=== PATIENT | male | born 2000 | race Caucasian/White ===

== ENCOUNTER 2018-03-22 23:15 | Emergency (ER) | payer OTHER ==
[~2018-03-22] VITALS: Ht 185.4 cm; Wt 80.6 kg
[2018-03-22 23:18] VITALS: TEMP 36.6; Ht 185.4 cm; Wt 80.6 kg
[2018-03-22] MEDS ORDERED: ONDANSETRON INJ 2 MG/ML 2 ML VIAL IV STA (23:31)
[2018-03-22] MEDS ORDERED: SODIUM CHLORIDE 0.9% 1000ML 1,000 ML IV STA (23:31)
[2018-03-22] MEDS ORDERED: HYOSCYAMINE SULFATE 0.125 MG SL TAB SL STA (23:31)
[2018-03-22 23:43] LABS: BASO % 0.3 %; BASO ABS # 0.02 K/uL (0-0.2); HEMOGLOBIN 16.3 g/dL (14.0-18.0); IG# 0.01 K/uL (0.00-0.02); LYMPH % 25.5 %; LYMPH ABS # 1.68 K/uL (1.2-3.4); MEAN CELL VOLUME 92.7 fL (80-100); MEAN CORPUSCULAR HEMOGLOBIN 32.9 pg (25-34); MEAN CORPUSCULAR HGB CONC 35.4 g/dl (32-36); MEAN PLATELET VOLUME 9.4 fL (7.4-10.4); MONO % 12.9 %; MONO ABS # 0.85 K/uL (0.11-0.59); NEUT % 61.1 %; NEUT ABS # 4.03 K/uL (1.4-6.5); PLATELET COUNT 317 K/uL (130-400); RED CELL DISTRIBUTION WIDTH CV 13.5 % (11.5-14.5); RED CELL DISTRIBUTION WIDTH SD 45.7 fL (36.4-46.3); WHITE BLOOD COUNT 6.59 K/uL (4.8-10.8)
[2018-03-22 23:56] LABS: ALBUMIN 4.9 gm/dl (3.4-5.0); CALCIUM 9.6 mg/dl (8.5-10.1); CREATININE 1.31 mg/dl (0.60-1.40); POTASSIUM 3.4 mmol/L (3.5-5.1)
[2018-03-22 23:59] LABS: TOTAL PROTEIN 8.7 gm/dl (6.4-8.2)
[2018-03-23] MEDS ORDERED: LIDOCAINE HCL 2% VISC SOLN 20 ML UDC PO STA (00:15)
[2018-03-23] MEDS ORDERED: ALUMINUM/MAGNESIUM SUSP 30 ML UDC PO STA (00:15)
[2018-03-23] MEDS ORDERED: PANTOprazole SOD 40 MG TAB PO STA (00:29)
[2018-03-23] MEDS ORDERED: ONDANSETRON HOME PACK 4MG OD TAB PO ONE (01:00)
[2018-03-23] MEDS ORDERED: ONDA4TAB10 SL (01:03)
[2018-03-23] MEDS ORDERED: PRT/20 PO (01:03)
[2018-03-23 01:09] VITALS: BP 138/78; PULSE 58; O2SAT 100
--- NOTE | 2018-03-23 02:20 | EMERGENCY ROOM VISIT NOTE ---
History Report prepared by Bryan: Tam Hernandez Under the Supervision of: Dr. Domo Reyes M.D. First contact with patient: 23:23 Chief Complaint: ABDOMINAL PAIN Stated Complaint: STOMACH ACHE, DEHYDRATIION, STREP THROAT, VOMITING History of Present Illness The patient is a 17 year old male who presents to the Emergency Room with complaints of severe, chronic, burning abdominal pain beginning several months ago. The patient states that he had his stomach scoped over spring which returned negative. He also reports that a sample from his stomach lining returned negative. The patient states that he was told that he had an overly acidic stomach environment causing acid erosion in his throat. He notes that he was prescribed acid reflux medications, but stopped taking the medication as he did not feel that they improved his symptoms. The patient states that he has been vomiting frequently for the past several days which prompted his visit to the E.R. He denies diarrhea, melena, any other medical problems, or blood in his vomit. The patient also reports a sore throat which he believes is strep throat as he was diagnosed with strep 3 times in the past 5 months. He notes that he was on Zithromax in January. Source of History: patient Onset: several months ago Position: abdomen Symptom Intensity: severe Quality: burning Timing: constant Modifying Factors (Worsening): other (none ) Modifying Factors (Relieving): other (none ) Associated Symptoms: + sorethroat, + vomiting, No melena, No diarrhea Note: Denies: Blood in vomit. Review of Systems See HPI for pertinent positives & negatives. A total of 10 systems reviewed and were otherwise negative. Past Medical & Surgical Medical Problems: (1) No chronic problems Family History No significant family history Social History Smoking Status: Never Smoker Alcohol Use: occasionally Drug Use: none Marital Status: single Housing Status: lives with roommate Occupation Status: student, [employer] student Current/Historical Medications Scheduled Ondasetron Odt (Zofran Odt), 4 MG SL Q6H Pantoprazole (Protonix), 20 MG PO DAILY Allergies Coded Allergies: Penicillins (Unverified Allergy, Unknown, unknown, 03/22/18) NUTS (Verified Adverse Reaction, Severe, swelling, hives, 03/22/18) Physical Exam Vital Signs Date Time Temp Pulse Resp B/P (MAP) Pulse Ox O2 Delivery O2 Flow Rate FiO2 03/23/18 01:09 58 20 138/78 100 03/22/18 23:18 36.6 63 18 152/104 95 Room Air Physical Exam Constitutional: Vital signs reviewed. Eyes: Pupils are equal round reactive to light. Conjunctiva are noninjected. ENT: Pharynx is mildly erythematous without exudate. Mucous membranes are dry. Neck supple without meningeal signs. Respiratory: Clear to auscultation bilaterally. Breath sounds are equal bilaterally. Cardiovascular: Regular rate and rhythm. No rubs or gallops. GI: Soft, nondistended with epigastric tenderness. No guarding. Bowel sounds are present. Musculoskeletal: No peripheral edema. No lower extremity tenderness. Integumentary: No cyanosis. Neurological: The patient is awake and alert. No focal deficits. Psychiatric: Normal affect. Medical Decision & Procedures ER Provider Diagnostic Interpretation: Radiology results as stated below per my review: CHEST/abdominal X-RAY: No acute cardiopulmonary process. No obstruction of free air. Laboratory Results 03/22/18 23:28 Red Blood Count 4.96, Mean Corpuscular Volume 92.7, Mean Corpuscular Hemoglobin 32.9, Mean Corpuscular Hemoglobin Concent 35.4, Mean Platelet Volume 9.4, Neutrophils (%) (Auto) 61.1, Lymphocytes (%) (Auto) 25.5, Monocytes (%) (Auto) 12.9, Eosinophils (%) (Auto) 0.0, Basophils (%) (Auto) 0.3, Neutrophils # (Auto ) 4.03, Lymphocytes # (Auto) 1.68, Monocytes # (Auto) 0.85, Eosinophils # (Auto ) 0.00, Basophils # (Auto) 0.02 03/22/18 23:28 Test 03/22/18 23:28 03/23/18 00:45 White Blood Count 6.59 K/uL (4.8-10.8) Red Blood Count 4.96 M/uL (4.7-6.1) Hemoglobin 16.3 g/dL (14.0-18.0) Hematocrit 46.0 % (42-52) Mean Corpuscular Volume 92.7 fL (80-100) Mean Corpuscular Hemoglobin 32.9 pg (25-34) Mean Corpuscular Hemoglobin Concent 35.4 g/dl (32-36) Platelet Count 317 K/uL (130-400) Mean Platelet Volume 9.4 fL (7.4-10.4) Neutrophils (%) (Auto) 61.1 % Lymphocytes (%) (Auto) 25.5 % Monocytes (%) (Auto) 12.9 % Eosinophils (%) (Auto) 0.0 % Basophils (%) (Auto) 0.3 % Neutrophils # (Auto) 4.03 K/uL (1.4-6.5) Lymphocytes # (Auto) 1.68 K/uL (1.2-3.4) Monocytes # (Auto) 0.85 K/uL (0.11-0.59) Eosinophils # (Auto) 0.00 K/uL (0-0.5) Basophils # (Auto) 0.02 K/uL (0-0.2) RDW Standard Deviation 45.7 fL (36.4-46.3) RDW Coefficient of Variation 13.5 % (11.5-14.5) Immature Granulocyte % (Auto) 0.2 % Immature Granulocyte # (Auto) 0.01 K/uL (0.00-0.02) Anion Gap 9.0 mmol/L (3-11) Est Creatinine Clear Calc Drug Dose 102.5 ml/min Estimated GFR () 90.8 Estimated GFR (Non- 78.4 BUN/Creatinine Ratio 9.1 (10-20) Calcium Level 9.6 mg/dl (8.5-10.1) Total Bilirubin 1.1 mg/dl (0.2-1) Direct Bilirubin 0.3 mg/dl (0-0.2) Aspartate Amino Transf (AST/SGOT) 24 U/L (15-37) Alanine Aminotransferase (ALT/SGPT) 33 U/L (12-78) Alkaline Phosphatase 111 U/L (45-117) Total Protein 8.7 gm/dl (6.4-8.2) Albumin 4.9 gm/dl (3.4-5.0) Lipase 126 U/L (73-393) Monoscreen NEG (NEG) Urine Color YELLOW Urine Appearance CLEAR (CLEAR) Urine pH 5.5 (4.5-7.5) Urine Specific [place] 1.029 (1.000-1.030) Urine Protein TRACE (NEG) Urine Glucose (UA) NEG (NEG) Urine Ketones 1+ (NEG) Urine Occult Blood NEG (NEG) Urine Nitrite NEG (NEG) Urine Bilirubin NEG (NEG) Urine Urobilinogen NEG (NEG) Urine Leukocyte Esterase NEG (NEG) Urine WBC (Auto) 1-5 /hpf (0-5) Urine RBC (Auto) 0-4 /hpf (0-4) Urine Hyaline Casts (Auto) 1-5 /lpf (0-5) Urine Epithelial Cells (Auto) 0-5 /lpf (0-5) Urine Bacteria (Auto) NEG (NEG) Laboratory results as reviewed by me. Medications Administered Medications (Trade) Dose Ordered Sig/Magdalene Route Start Time Stop Time Status Last Admin Dose Admin Ondansetron HCl (Zofran Inj) 4 mg NOW STAT IV 03/22/18 23:31 03/22/18 23:32 DC 03/22/18 23:43 4 MG Sodium Chloride 1,000 ml @ 999 mls/hr Q1H1M STAT IV 03/22/18 23:31 03/23/18 00:31 DC 03/22/18 23:43 999 MLS/HR Hyoscyamine Sulfate (Levsin Tab) 0.125 mg NOW STAT SL 03/22/18 23:31 03/22/18 23:32 DC 03/22/18 23:43 0.125 MG Lidocaine HCl (Viscous Lidocaine 2% Soln) 10 ml NOW STAT PO 03/23/18 00:15 03/23/18 00:16 DC 03/23/18 00:39 10 ML Al Hydroxide/Mg Hydroxide (Maalox Susp) 30 ml NOW STAT PO 03/23/18 00:15 03/23/18 00:16 DC 03/23/18 00:39 30 ML Pantoprazole Sodium (Protonix Tab) 40 mg NOW STAT PO 03/23/18 00:29 03/23/18 00:30 DC 03/23/18 00:39 40 MG Ondansetron HCl (ZOFRAN ODT 4MG Home Pack) 1 homepack UD ONCE PO 03/23/18 01:00 03/23/18 01:01 DC 03/23/18 01:00 1 HOMEPACK ED Course 2326: The patient was evaluated in room A3. A complete history and physical exam was performed. 2331: Ordered Levsin Tab 0.125mg SL, Sodium Chloride 1000 ml @ 999 mls/hr IV, and Zofran Inj 4mg IV. 0015: Ordered Maalox Susp 30ml PO and Lidocaine HCL 10ml PO. 0028: I reevaluated the patient. He is feeling much better now although he still has abdominal pain. I reviewed test results with him. 0029: Ordered Protonix Tab 40mg PO. 0100: I reevaluated the patient, he is ready to go home. The patient requested a school note. Medical Decision This is a 17-year-old male presents with abdominal pain, sore throat and vomiting. Differential diagnosis includes peptic ulcer disease, gastritis, bowel obstruction, foodborne illness, strep, infectious mononucleosis. I did perform a limited focused review of portions of the patient's old chart on the electronic medical record. The patient has had no recent pertinent visits to this hospital. I did evaluate the patient as noted above. IV access was established. I did treat him with Zofran and normal saline IV. He was also given Levsin and a GI cocktail. I did order and personally review the patient's urinalysis as described above. I did order and review the patient's blood work as noted in the electronic medical record. His labs are unremarkable. His white blood cell count is not elevated. Monospot is negative. I did order a strep test which was negative. I did order an x-ray of the chest and abdomen. Per my interpretation there is no evidence of acute cardiopulmonary process or obstruction or free air. I did reassess the patient. He states he is feeling much better. I did discuss the test results with him. He was given a prescription for Zofran and Protonix. He was given his first dose of Protonix here. He was advised to follow-up with his doctor. He did request a school note which he was given. Medication Reconcilliation Current Medication List: was personally reviewed by me Blood Pressure Screening Patient's blood pressure: Elevated blood pressure Blood pressure disposition: Referred to PCP The patient is hypertensive. Impression Primary Impression: Abdominal pain Additional Impressions: Vomiting Sore throat Scribe Attestation The scribe's documentation has been prepared under my direct and personally reviewed by me in its entirety. I confirm that the note above accurately reflects all work, treatment, procedures, and medical decision making performed by me. Departure Information Dispostion Home / Self-Care Prescriptions Ondasetron Odt (ZOFRAN ODT) 4 Mg Tab 4 MG SL Q6H for Nausea, #6 TAB Prov: Domo Reyes M.D. 03/23/18 Pantoprazole (Protonix) 20 Mg Tab 20 MG PO DAILY, #20 TAB Prov: Domo Reyes M.D. 03/23/18 Referrals No Doctor, Assigned (PCP) Forms HOME CARE DOCUMENTATION FORM, IMPORTANT VISIT INFORMATION Patient Instructions ED Abdominal Pain Unkn Cause Male, My [facility] Additional Instructions You have been examined and treated today on an emergency basis only. This is not a substitute for, or an effort to provide, complete comprehensive medical care. It is impossible to recognize and treat all injuries or illnesses in a single emergency department visit. It is therefore important that you follow up closely with your physician or [facility]. Call as soon as possible for an appointment. Return for worsening symptoms or if you develop fever, black or tarry stools or any other concerning symptoms. Problem Qualifiers Primary Impression: Abdominal pain Abdominal location: epigastric Qualified Codes: R10.13 - Epigastric pain Additional Impressions: Vomiting Vomiting type: unspecified Vomiting Intractability: non-intractable Nausea presence: with nausea Qualified Codes: R11.2 - Nausea with vomiting, unspecified
--- NOTE | 2018-03-23 06:48 | DIAGNOSTIC IMAGING REPORT ---
ABDOMEN 2VIEW W/PA CHEST RTN HISTORY: 17 years-old Male eval for obstruction acute nausea, vomiting and diarrhea with concern for small bowel obstruction COMPARISON: None available TECHNIQUE: PA view of the chest with erect and supine views of the abdomen FINDINGS: Cardiomediastinal and hilar silhouettes are within normal limits. There is no pneumothorax, pleural effusion, focal airspace consolidation or overt pulmonary edema. Bones of the chest appear grossly intact. No pneumoperitoneum on the upright projection. No pneumatosis. Bowel gas pattern is nonobstructive. No urolith or organomegaly identified. No fracture. IMPRESSION: 1. No acute processes of the chest. 2. Nonobstructive bowel gas pattern without pneumoperitoneum. The above report was generated using voice recognition software. It may contain grammatical, syntax or spelling errors. Electronically signed by: Esteban Clarke M.D. 03/23/2018 6:46 AM Dictated Date/Time: 03/23/2018 6:44 AM
--- NOTE | 2018-03-25 15:20 | Pharmacy Progress Note ---
ED Pharmacist Culture FollowUp Date of Service: March 25, 2018. Patient's back-up GAS cx is growing few GAS. He had c/o sore throat when seen on 03/22. He does have a h/o recurrent strep throat. PCN allergy noted, rxn uncertain. Reviewed case w/ Dr Medina. Plan is to place pt on Zithromax 500mg PO x 1, then 250mg daily x 4 days. Contacted pt and explained cx results. He requested Rx be called to [facility] [address] [phone] which I did do for him.
== END 2018-03-23 01:10 | disposition home or self-care (01) ==
LOC: C.EDB 23:16 → C.EDA 03-23 01:10
DX: R10.13 Epigastric pain (principal); R11.2 Nausea with vomiting, unspecified; J02.9 Acute pharyngitis, unspecified; Z88.0 Allergy status to penicillin; Z91.018 Allergy to other foods